=== PATIENT | male | born 1995 | race Two or more races ===

== ENCOUNTER 2024-01-16 19:23 | Emergency (ER) | payer OTHER ==
[2024-01-16 19:32] VITALS: BP 144/94; PULSE 101; RESP 20; TEMP 98.2; BMI 30.7
[2024-01-16] MEDS ORDERED: predniSONE 20 MG TABLET (UD) ONE (20:34)
[2024-01-16] MEDS: predniSONE 20 MG TABLET (UD) PO ONE (20:46)
[2024-01-16] MEDS ORDERED: guaiFENesin/D-METHORPHAN HB 10 ML UNIT-DOSE CUPS ONE (20:50)
[2024-01-16] MEDS: guaiFENesin 200 MG/10 ML 10 ML UNIT-DOSE CUPS PO ONE (20:54)
== END 2024-01-16 20:57 | disposition home or self-care (01) ==
LOC: JER 19:23
DX: R20.0 Anesthesia of skin (principal); G51.0 Bell's palsy
CPT/HCPCS: 99283-25